=== PATIENT | male | born 1970 | race Caucasian/White ===

== ENCOUNTER 2018-09-26 02:47 | Emergency (ER) | payer BC ==
[~2018-09-26] VITALS: Ht 175.3 cm; Wt 113.4 kg
[~2018-09-26 02:47] MED LIST: ALLEGRA ALLERG180 MG PO; NEXIUM20 MG PO; NORCO 10-325 T1 EACH PO; PROVIGIL200 MG PO; ZOLOFT100 MG PO
[2018-09-26] MEDS ORDERED: METFORMIN HCL500 MG PO (03:34)
[2018-09-26] MEDS ORDERED: GLUCOPHAGE500 MG PO (03:50)
[2018-09-26] MEDS ORDERED: RANITIDINE HCL150 MG PO (06:46)
--- NOTE | 2018-09-26 22:18 | EKG ---
[facility] [address] [facility] [place], [place] [address] Signed Normal sinus rhythm Inferior infarct , age undetermined Abnormal ECG When compared with ECG of 29-APR-2018 08:26, No significant change was found Confirmed by KATIE MITTAL DO ([id number]) on 09/26/2018 10:18:03 PM Electronically Signed By: KATIE MITTAL DO 09/26/18 2218 PATIENT NAME: TRISTEN GANDHI Electrocardiogram DATE OF : 70 PHYSICIAN: KATIE MITTAL DO REPORT #: [id number] REPORT IS CONFIDENTIAL AND NOT TO BE RELEASED WITHOUT AUTHORIZATION
== END 2018-09-26 07:27 | disposition home or self-care (01) ==
LOC: ED 02:47
DX: R10.13 Epigastric pain (principal); G47.30 Sleep apnea, unspecified; K21.9 Gastro-esophageal reflux disease without esophagitis; Z87.891 Personal history of nicotine dependence; Z79.899 Other long term (current) drug therapy
CPT/HCPCS: 76705; 80053; 81001; 83690; 84484; 85025; 93005; 93010; 96374; 96375; 99284-25; J1170; J2405

== ENCOUNTER 2021-02-08 03:17 | Emergency (ER) | payer OTHER ==
[~2021-02-08] VITALS: Ht 175.3 cm; Wt 113.4 kg
[~2021-02-08 03:17] MED LIST changes: +GLUCOPHAGE500 MG PO; +METFORMIN HCL500 MG PO; +RANITIDINE HCL150 MG PO
[2021-02-08] MEDS ORDERED: MAALOX ADVANCE1 EACH PO (05:40)
--- NOTE | 2021-02-08 13:17 | EKG ---
[facility] [address] [facility] [place], [place] [address] Signed Normal sinus rhythm Cannot rule out Anterior infarct , age undetermined Abnormal ECG When compared with ECG of 26-SEP-2018 03:26, No significant change was found Confirmed by HERMANN MONTES MD ([id number]) on 02/08/2021 1:16:59 PM Electronically Signed By: HERMANN MONTES MD 02/08/21 1317 PATIENT NAME: TRISTEN GANDHI Electrocardiogram DATE OF : 70 PHYSICIAN: HERMANN MONTES MD REPORT #: [id number] REPORT IS CONFIDENTIAL AND NOT TO BE RELEASED WITHOUT AUTHORIZATION
== END 2021-02-08 05:54 | disposition home or self-care (01) ==
LOC: ED 03:17
DX: R10.13 Epigastric pain (principal); G47.30 Sleep apnea, unspecified; K21.9 Gastro-esophageal reflux disease without esophagitis; E11.9 Type 2 diabetes mellitus without complications; F17.200 Nicotine dependence, unspecified, uncomplicated; Z79.899 Other long term (current) drug therapy; Z79.84 Long term (current) use of oral hypoglycemic drugs
CPT/HCPCS: 71046; 80053; 81001; 83690; 84484; 85025; 85379; 93005; 93010; 96374; 96375; 96376; 99284-25; J2270; J2405

== ENCOUNTER 2024-12-18 05:55 | Day surgery (SDC) | payer OTHER ==
[2024-12-16 09:36] VITALS: BP 110/73
[~2024-12-18] VITALS: Ht 175.3 cm; Wt 104.5 kg
[~2024-12-18 05:55] MED LIST changes: +CRESTOR40 MG NG; +JARDIANCE25 MG PO; +MAALOX ADVANCE1 EACH PO; +MIDAZOLAM HCL 5 MG/5 ML VIAL IV PRN; +VITAMIN D325 MCG PO; +ZESTRIL2.5 MG PO; +fentaNYL citrate 100 MCG/2 ML VIAL IV PRN
[2024-12-18 06:08] VITALS: BP 124/75
[2024-12-18] MEDS ORDERED: propofoL 200 MG/20 ML VIAL ONE (06:37)
[2024-12-18] MEDS ORDERED: LIDOCAINE HCL 1% 5 ML SDV INJ ONE (07:00)
[2024-12-18] MEDS ORDERED: LACTATED RINGER'S 1,000 ML IV SCH (07:00)
[2024-12-18] MEDS ORDERED: IBLOOD GLUCOSE TEST STRIP 1 EA TEST VI PRN (07:00)
[2024-12-18] MEDS ORDERED: LACTATED RINGER'S 1,000 ML IV ONE (07:52)
--- NOTE | 2024-12-18 08:24 | NUR ---
12/18/24 0824 Edwina Ochoa 0815-PT ARRIVES TO PACU VIA STRETCHER, RESTING ON LT SIDE, PT NOT RESPONISVE TO NOXIOUS STIMULI, OPA IN PLACE, VSS ON 10L VIA MASK.
[2024-12-18 09:30] VITALS: BP 128/76
--- NOTE | 2024-12-18 10:11 | OR ---
[facility] [address] [place], [place] [address] Signed DATE OF OPERATION: 12/18/2024 SURGEON: Tabatha Farr MD PREOPERATIVE DIAGNOSES: 1. Gastroesophageal reflux disease. 2. Tiny hiatal hernia. 3. Irritable bowel syndrome with diarrhea. 4. Chews snuff. 5. Screening. POSTOPERATIVE DIAGNOSES: 1. Tiny hiatal hernia. 2. GE junction at 35 cm. 3. A 12 mm pedunculated polyp at 55 cm in left colon. 4. 4 mm polyps at 7 and 10 cm in rectum. 5. Minimal internal and external hemorrhoids. PROCEDURES: 1. Esophagogastroduodenoscopy with CLOtest and biopsy of the antrum. 2. Colonoscopy with snare polypectomy. ESTIMATED BLOOD LOSS: None. 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 I helped Yonis with upper endoscopy back in 2008 at the age of 38. At that time, he was having epigastric abdominal pain, heartburn and acid reflux. He had just a very tiny hiatal hernia. He has been using Nexium and feeling much better. His CLOtest was negative. He also describes a sigmoidoscopy back in 1995 at the age of 25 through the [facility] in [place], [place]. He said that was awful. He said he was having diarrhea associated with his irritable bowel syndrome. He is now retired chief of police. He said he feels much better. He continues to chew snuff and has very poor dentition. He also has a very full face doherty with a round face, heavy chest and abdomen. He also has PTSD from his police experience. In that regard, he really needed monitored anesthesia care propofol infusion today. He said he has never had a previous colonoscopy. He has no family history of colon cancer or polyps. He is aware that an adult person has to take him home afterwards. In the office, I gave him pamphlets on both upper and lower endoscopy. We had reviewed the nature of the two Electronically Signed By: TABATHA FARR MD 12/18/24 1011 PATIENT NAME: YONIS GANDHI OPERATIVE REPORT DATE OF : 70 REPORT #: [id number] PHYSICIAN: TABATHA FARR MD PCP: AARON MAHONEY PA-C REPORT IS CONFIDENTIAL AND NOT TO BE RELEASED WITHOUT AUTHORIZATION [facility] [address] [place], [place] [address] Signed tests. There is risk including, but not limited to gas bloating, crampy abdominal pain, bleeding, perforation requiring surgery, and missed diagnosis. We also reviewed the written instructions for the bowel prep line by line. He had expressed understanding and wished to proceed. DESCRIPTION OF PROCEDURE: Yonis was taken into our endoscopy suite, placed in a supine semi-recumbent position. A bite block was utilized for the case. He was given monitored anesthesia care with propofol infusion per our nurse balloon tester. The adult gastroscope was introduced and advanced down the third portion of the duodenum without difficulty. The duodenum and pyloric channel were unremarkable. The stomach showed very mild inflammation, so we went ahead and took a biopsy of the antrum for pathologic review and CLOtest. Upon retroflexion of scope he again has this very tiny sliding-type hiatal hernia. The scope was withdrawn up through the area of the GE junction, which was compliant without stricture. He has a little bit irritation and minimal disruption along the Z-line at 35 cm. There was no Mejia's mucosa. No distal esophagitis. The middle and upper esophagus were unremarkable. We noticed that he did have some edema to the arytenoids, but the vocal cords seemed to be fine. After this the gas was suctioned out, the gastroscope removed. Yonis tolerated the upper endoscopy quite well. Yonis was rotated into the left lateral decubitus position. He was maintained on propofol infusion per our nurse balloon tester. A digital rectal exam was performed. He had at least one moderate-sized external hemorrhoid on the right. He had good sphincter tone. His prostate is getting enlarged and indurated. The adult colonoscope was introduced, advanced all the way around into the cecum under direct visualization of camera without difficulty. His prep was quite excellent. The scope was slowly withdrawn. We found a pedunculated 12 mm polyp back at 55 cm. We took it off in three pieces with the help of the snare. I think two of the three pieces we captured for pathologic review. There were no diverticula. He had two tiny polyps in the rectum. We took out with hot biopsy forceps. After this, the scope was retroflexed and it looks like he has just very minimal internal hemorrhoid tissue. The gas was then suctioned out. The colonoscope removed. Yonis tolerated the procedure quite well. RECOMMENDATIONS: Yonis will follow up my office in 7 to 14 days to review his results. I suspect he will be on the five year plan at a minimum for his colonoscopies. He will always need monitored anesthesia care given his body habitus. Tabatha Farr MD Electronically Signed By: TABATHA FARR MD 12/18/24 1011 PATIENT NAME: YONIS GANDHI OPERATIVE REPORT DATE OF : 70 REPORT #: [id number] PHYSICIAN: TABATHA FARR MD PCP: AARON MAHONEY PA-C REPORT IS CONFIDENTIAL AND NOT TO BE RELEASED WITHOUT AUTHORIZATION [address] [place], [place] [address] Signed ALB/MODL /[id number] cc: [facility] ADELFO Tyler MD Copies: AARON MAHONEY PA-C, ANDREW L MD ~ Electronically Signed By: TABATHA FARR MD 12/18/24 1011 PATIENT NAME: YONIS GANDHI OPERATIVE REPORT DATE OF : 70 REPORT #: [id number] PHYSICIAN: TABATHA FARR MD PCP: AARON MAHONEY PA-C REPORT IS CONFIDENTIAL AND NOT TO BE RELEASED WITHOUT AUTHORIZATION
--- NOTE | 2024-12-25 13:41 | PATH ---
[facility] [address] [place], [place] [address] Signed SPECIMEN(S): A ANTRUM/PYLORUS BIOPSY SPECIMEN(S): B RECTAL POLYP AT 10 CM SPECIMEN(S): C COLON POLYP AT 55 CM SPECIMEN SOURCE: A. ANTRUM/PYLORUS BIOPSY B. RECTAL POLYP AT 10 CM C. COLON POLYP AT 55 CM CLINICAL HISTORY: GERD: Hiatal hernia, IBS, diarrhea. Postop: Small hiatal hernia, internal/external hemorrhoid, colon polyp. FINAL PATHOLOGIC DIAGNOSIS: A. Antrum/pylorus of stomach, biopsy: - Benign gastric mucosa with nonspecific mild chronic inflammation. - Negative for Helicobacter organisms by HE stain. - No ulcer, dysplasia, or intestinal metaplasia identified. B. Rectal polyp at 10 cm: - Sessile serrated adenoma - No dysplasia or malignancy identified. C. Colon polyp at 55 cm: - Polypoid benign colonic tissue. - No colitis or malignancy identified. COMMENT: Specimen C: Stains are performed CD117: Negative SMA: Positive in muscularis mucosa and vessel gomez. Desmin: Positive in muscularis mucosa and vessel gomez. [facility] MICROSCOPIC EXAMINATION: Histologic sections of all submitted blocks are examined by light microscopy. These findings, together with the gross examination, support the pathologic diagnosis. GROSS DESCRIPTION: A. The specimen, labeled and designated "James Perkins, antrum/pylorus biopsy," is received in formalin and consists of one ramirez soft tissue fragment, 0.4 cm. Entirely submitted in (A1). PATIENT NAME: TRISTEN PERKINS PATHOLOGY DATE OF : 70 REPORT #: [id number] PHYSICIAN: LEWIS RASCON PCP: AARON MAHONEY PA-C REPORT IS CONFIDENTIAL AND NOT TO BE RELEASED WITHOUT AUTHORIZATION [facility] [address] [place], [place] [address] Signed B. The specimen, labeled and designated "James Perkins, rectal polyp at 10 cm," is received in formalin and consists of two ramirez soft tissue fragments, ranging from 0.2-0.3 cm. Entirely submitted in (B1). C. The specimen, labeled and designated "James Perkins, colon polyp at 55 cm," is received in formalin and consists of two ramirez soft tissue fragments, ranging from 0.5-0.6 cm. Entirely submitted in (C1). AB (under the direct supervision of a pathologist) The Gross Description was prepared using a voice recognition system. The report was reviewed for accuracy; however, sound-alike word errors, addition and/or deletions may occur. If there is any question about this report, please contact Client Services. ADDITIONAL NOTES: Immunohistochemical and/or in situ hybridization studies if performed in this case included appropriate positive controls that reacted as expected. This test was developed and its performance characteristics determined by [facility]. It has not been cleared or approved by the U.S. Food and Drug Administration. The FDA has determined that such clearance or approval is not necessary. This test is used for clinical purposes. It should not be regarded as investigational or for research. [facility] is certified under the Clinical Laboratory Improvement Amendments of 1988 (CLIA) as qualified to perform high complexity clinical laboratory testing. PERFORMING LABORATORY: Technical component was performed by [facility], [address] [place] [id number] (CLIA# [id number]). Professional interpretation was performed by [facility] - Located within [facility], [address] [place] [id number] (CLIA#: [id number]). Diagnostician: Reynaldo Wade MD Pathologist Electronically Signed 12/25/2024 Copies: ~ PATIENT NAME: TRISTEN PERKINS PATHOLOGY DATE OF : 70 REPORT #: [id number] PHYSICIAN: [facility] PCP: AARON MAHONEY PA-C REPORT IS CONFIDENTIAL AND NOT TO BE RELEASED WITHOUT AUTHORIZATION
== END 2024-12-18 09:25 | disposition home or self-care (01) ==
LOC: DS 05:55
PROVIDERS: ATTEND Colon & Rectal Surgery
PROC: 0DBP8ZX Excision of Rectum, Via Natural or Artificial Opening Endoscopic, Diagnostic (ICD-10-PCS; 2024-12-18)
PROC: 0DB68ZX Excision of Stomach, Via Natural or Artificial Opening Endoscopic, Diagnostic (ICD-10-PCS; principal; 2024-12-18 07:30)
PROC: 0DBE8ZX Excision of Large Intestine, Via Natural or Artificial Opening Endoscopic, Diagnostic (ICD-10-PCS; 2024-12-18 07:30)
DX: K63.5 Polyp of colon (principal); D12.8 Benign neoplasm of rectum; K29.50 Unspecified chronic gastritis without bleeding; K44.9 Diaphragmatic hernia without obstruction or gangrene; K64.8 Other hemorrhoids; K64.4 Residual hemorrhoidal skin tags; K21.9 Gastro-esophageal reflux disease without esophagitis; K58.0 Irritable bowel syndrome with diarrhea; F17.220 Nicotine dependence, chewing tobacco, uncomplicated; G47.33 Obstructive sleep apnea (adult) (pediatric); E78.5 Hyperlipidemia, unspecified; E11.9 Type 2 diabetes mellitus without complications; E66.9 Obesity, unspecified; Z68.37 Body mass index [BMI] 37.0-37.9, adult; Z79.84 Long term (current) use of oral hypoglycemic drugs; Z79.899 Other long term (current) drug therapy
CPT/HCPCS: 00813; 36415; 87077; 88305; 88341; 88342; J2704; J7121